=== PATIENT | female | born 1975 | race Two or more races ===

== ENCOUNTER 2023-06-03 12:05 | Emergency (ER) | payer BC ==
[2023-06-03 12:25] VITALS: BP 141/93; O2SAT 97
--- NOTE | 2023-06-03 12:37 | ED Physician Documentation ---
PD HPI HEAD INJURY - Stated complaint Stated Complaint: HEAD INJ - Chief complaint Chief Complaint: Laceration - Additional information Additional information: 47-year-old female with history of breast cancer in full remission presents to the emergency department for forehead laceration. Patient says that she was guarding today was trying to pull a branch down and car until got loose and hit her on her forehead. Bleeding is well-controlled she has no loss of consciousness she is not on any blood thinners. 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 - Present Medications Home Medications: Ambulatory Orders Medication Instructions Recorded Confirmed Levothyroxine [Synthroid] 25 mcg PO QDAC 06/03/23 06/03/23 - Allergies Allergies/Adverse Reactions: Allergies Allergy/AdvReac Type Severity Reaction Status Date / Time povidone-iodine Allergy Rash Verified 06/03/23 12:16 [From Betadine] - Social History Does the pt smoke?: No Smoking Status: Never smoker PD ED PE NORMAL - Vitals Vital signs reviewed: Yes - General General: Alert and oriented X 3, No acute distress, Well developed/nourished - HEENT HEENT: PERRL, Other (1cm forehead laceration) - Derm Derm: Other (1cm laceration to forehead) - Psych Psych: Normal mood Results - Vitals Vitals: Vital Signs - 24 hr 06/03/23 12:13 Temperature 36.6 C Heart Rate 77 Respiratory 16 Rate Blood Pressure 141/93 H O2 Saturation 97 Procedures - Laceration (location) forhead laceration Length in cm: 1 (L shaped) Wound type: Flap, Superficial Neurovascular status: Sensory intact, Motor intact Wound preparation: Hibiclens, Irrigated copiously NS Skin layer closure: Dermabond, Steri strips Other: Patient tolerated well, Tetanus booster given PD Medical Decision Making - ED course ED course: Wound inspected under direct bright light with good visualization. No overt foreign body. Area hemostatic. Area extensively irrigated with sterile normal saline under pressure. Laceration repaired in simple fashion (please see procedure note for further details). Patient tolerated procedure well. Cautious return precautions discussed w/ full understanding. Wound care discussed. Departure - Departure Disposition: 01 Home, Self Care Clinical Impression: Laceration of head Qualifiers: Encounter type: initial encounter Location of open wound of head: other part of head Foreign body presence: without foreign body Qualified Code(s): S01.81XA - Laceration without foreign body of other part of head, initial encounter Instructions: ED Laceration Facial Skin Glue Comments: Thank you for trusting us with your care. We have placed a small Steri-Strip over the laceration to forehead and have glued the edges of the Steri-Strips to help with the bondage. Keep this area clean and dry. You can remove this in 5 to 7 days and from there you can start applying bacitracin or Aquaphor to keep the wound moist to help with healing. Please watch out for signs and symptoms of infection which include redness and swelling, worsening pain, drainage that is yellow or green. Forms: PCP List
[2023-06-03] MEDS: TETANUS/DIPHTHERIA/PERTUSSIS 0.5 ML SYRINGE IM ONE (12:58)
== END 2023-06-03 13:01 | disposition home or self-care (01) ==
LOC: ED 12:05
DX: S01.81XA Laceration without foreign body of other part of head, initial encounter (principal); W22.8XXA Striking against or struck by other objects, initial encounter; Y93.H2 Activity, gardening and landscaping
CPT/HCPCS: 90471; 99283